=== PATIENT | male | born 1995 | race Hispanic/Latino ===

== ENCOUNTER 2023-02-15 07:53 | Emergency (ER) | payer MEDICAID, OTHER ==
[~2023-02-15] VITALS: Ht 154.9 cm; Wt 70.3 kg
[2023-02-15 08:08] VITALS: BP 132/80; PULSE 64; RESP 16; TEMP 98.1; O2SAT 98
[2023-02-15 09:27] VITALS: BP 127/74; PULSE 75; RESP 16; TEMP 98.1; O2SAT 98
[2023-02-15 09:55] VITALS: BP 127/74; PULSE 75; RESP 16; TEMP 98.1; O2SAT 98
== END 2023-02-15 10:00 | disposition home or self-care (01) ==
LOC: ER 07:53
DX: K04.7 Periapical abscess without sinus (principal)
CPT/HCPCS: 99283